=== PATIENT | female | born 1990 | race Caucasian/White ===

== ENCOUNTER 2018-09-12 13:27 | Outpatient (CLI) | payer OTHER ==
--- NOTE | 2018-09-12 14:46 | MRI ---
MRI brain with and without contrast: 09/12/2018 COMPARISON: None HISTORY: Seizures TECHNIQUE: Multiplanar multisequence MR imaging of the brain is obtained with and without contrast us ing a seizure protocol FINDINGS: The diffusion weighted imaging demonstrates no evidence for acute infarction. The gradient echo imaging demonstrates no evidence for intracranial hemorrhage or calcification. There is no midline shift, mass effect, or ventricular enlargement. Thin section coronal imaging through the hippocampi/mesial temporal lobes demonstrate symmetric loan l sized structure and signal intensity. The postcontrast imaging demonstrates no abnormal enhancement within the brain parenchyma. There is mild mucosal thickening involving the inferior aspect of the sphenoid sinus on the left. Art erial flow voids at the axial level of the skull base appear grossly unremarkable on the T2-weighted imaging. IMPRESSION: Grossly unremarkable contrast enhanced brain MRI using the seizure protocol.
== END 2018-09-12 13:28 | disposition home or self-care (01) ==
LOC: SCSMRI 13:27
PROVIDERS: ATTEND Psychiatry & Neurology Neurology
DX: R56.9 Unspecified convulsions (principal)
CPT/HCPCS: 70553